=== PATIENT | female | born 1965 | race Caucasian/White ===

== ENCOUNTER 2020-11-28 05:33 | Inpatient (IN) | payer BC ==
--- NOTE | 2020-11-28 06:31 | ED ---
General Adult HPI - General Source: patient, EMS Mode of arrival: EMS Limitations: no limitations - History of Present Illness Onset/Timin -: hour(s) Location: back, abdomen Radiation: non-radiation Quality: aching, sharp Consistency: colicky Improves with: medication Worsens with: none Associated Symptoms: nausea/vomiting Treatments Prior to Arrival: other <Hugo Rubi - Last Filed: 11/28/20 06:31> <Bibiana Nina - Last Filed: 11/28/20 07:45> - General Chief complaint: Recheck/Abnormal Lab/Rx Stated complaint: Kidney stone Time Seen by Provider: 11/28/20 05:38 - History of Present Illness Initial comments: this patient is a 55-year-old woman transferred here from [facility] for concerns about possibility of infected kidney stone. (Hugo Rubi) - Related Data Allergies Allergy/AdvReac Type Severity Reaction Status Date / Time codeine Allergy Unknown Verified 11/28/20 07:30 Review of Systems ROS Other: All systems not noted in ROS Statement are negative. Constitutional: Reports: fever (subjective). Denies: chills Respiratory: Denies: cough, dyspnea Cardiovascular: Denies: chest pain, palpitations, edema, syncope Gastrointestinal: Reports: as per HPI, abdominal pain, nausea, vomiting. Denies: diarrhea, constipation, melena, hematochezia Genitourinary: Denies: dysuria, hematuria Musculoskeletal: Denies: back pain Skin: Denies: rash Neurological: Denies: headache, weakness, numbness <Hugo Rubi - Last Filed: 11/28/20 06:31> ROS Other: All systems not noted in ROS Statement are negative. <Bibiana Nina - Last Filed: 11/28/20 07:45> ROS Statement: Those systems with pertinent positive or pertinent negative responses have been documented in the HPI. Past Medical History Past Medical History: Rheumatoid Arthritis (RA), Sleep Apnea/CPAP/BIPAP History of Any Multi-Drug Resistant Organisms: None Reported Past Psychological History: No Psychological Hx Reported, Anxiety Smoking Status: Former smoker Past Alcohol Use History: Occasional Past Drug Use History: None Reported <Hugo Rubi - Last Filed: 11/28/20 06:31> General Exam Limitations: no limitations General appearance: alert, in no apparent distress Eye exam: Present: normal appearance. Absent: scleral icterus, conjunctival injection ENT exam: Present: normal oropharynx Neck exam: Present: normal inspection Respiratory exam: Present: normal lung sounds bilaterally. Absent: respiratory distress, wheezes, rales, rhonchi, stridor Cardiovascular Exam: Present: regular rate, normal rhythm, normal heart sounds. Absent: systolic murmur, diastolic murmur, rubs, gallop GI/Abdominal exam: Present: soft. Absent: distended, tenderness, guarding, rebound, rigid Extremities exam: Present: normal inspection, normal capillary refill. Absent: pedal edema, calf tenderness Back exam: Present: normal inspection, CVA tenderness (R). Absent: CVA tenderness (L) Neurological exam: Present: alert Skin exam: Present: warm, dry, intact, normal color. Absent: rash <Hugo Rubi - Last Filed: 11/28/20 06:31> Course Vital Signs 11/28/20 05:35 Temperature 98.0 F Pulse Rate 86 Respiratory 18 Rate Blood Pressure 121/98 O2 Sat by Pulse 97 Oximetry Medical Decision Making <Hugo Rubi - Last Filed: 11/28/20 06:31> <Bibiana iNna - Last Filed: 11/28/20 07:45> - Medical Decision Making patient is 55-year-old woman transferred here from [facility] for right ureteral stone with intractable pain and possible infection. This discussed with Dr. Parekh who requests patient admitted to medicine with urology consultation for the discussed with sound physician and they will accept admission. (Hugo Rubi) pt abx as verbal order from Dr Rubi (not involved in patient care) (Bibiana Nina) Disposition Is patient prescribed a controlled substance at d/c from ED?: No <Hugo Rubi - Last Filed: 11/28/20 06:31> <Bibiana Nina - Last Filed: 11/28/20 07:45> Clinical Impression: Kidney stone on right side, Urinary tract infection Disposition: ADMITTED IP TO THIS HOSP Condition: Fair
[2020-11-28] MEDS ORDERED: ONDANSETRON 4 MG/2 ML VIAL IVP PRN (06:44)
[2020-11-28] MEDS ORDERED: NALOXONE 0.4 MG/ML 1 ML VIAL IV PRN (06:44)
[2020-11-28] MEDS ORDERED: HYDROmorphone 0.5 MG/0.5 ML SYRINGE IVP PRN (06:44)
[2020-11-28] MEDS ORDERED: HYDROmorphone 1 MG/ML 1 ML SYRINGE IVP PRN (06:44)
[2020-11-28] MEDS: SODIUM CHLORIDE 0.9% 1,000 ML IV SCH ×2 (07:18→21:43)
[2020-11-28] MEDS ORDERED: cefTRIAXone IN SWFI 1,000 MG/10 ML SYRINGE IVP STA (07:44)
[2020-11-28 07:49] LABS: HCT 38.1 % (34.0-46.0); HGB 12.7 gm/dL (11.4-16.0); MCH 33.9 pg (25.0-35.0); MCHC 33.4 g/dL (31.0-37.0); MCV 101.4 fL (80.0-100.0); Macrocytosis Slight; Mean Platelet Volume 8.6; Platelet Count 141 k/uL (150-450); RBC 3.76 m/uL (3.80-5.40); RDW 13.4 % (11.5-15.5); WBC 7.5 k/uL (3.8-10.6)
[2020-11-28 07:59] LABS: Prothrombin Time 10.6 sec (9.0-12.0)
[2020-11-28 08:16] LABS: African American GFR (CKD) >90 (>60 ml/min/1.73 sqM); Anion Gap 4 mmol/L; Blood Urea Nitrogen 15 mg/dL (7-17); Calcium 7.8 mg/dL (8.4-10.2); Carbon Dioxide 26 mmol/L (22-30); Chloride 112 mmol/L (98-107); Glucose 101 mg/dL (74-99); Non-African American GFR(CKD) >90 (>60 ml/min/1.73 sqM); Potassium 4.6 mmol/L (3.5-5.1); Sodium 142 mmol/L (137-145)
[2020-11-28] MEDS ORDERED: HYDROcodone/APAP 5-325MG 1 EACH TAB PO PRN (08:32)
[2020-11-28] MEDS ORDERED: bisacodyL 5 MG TABLET.DR PO PRN (08:32)
--- NOTE | 2020-11-28 08:32 | P.HPIM ---
History of Present Illness H&P Date: 11/28/20 Chief Complaint: back pain Patient is a 55-year-old with rheumatoid arthritis on Humira and methotrexate, Obesity, and recent COVID infection who initially presented to [facility] due to sudden onset right flank pain. There she underwent an extensive evaluation. CT abdomen and pelvis without contrast demonstrated a 14 mm stone at the right UPJ with moderate right hydronephrosis and 2 smaller proximal right ureteric calculi, left nephrolithiasis without obstructing ureteral calculus was also seen. Urinalysis demonstrated 50-100 white blood cells. White blood cell count was normal. She was transferred to here for urology evaluation. Repeat CBC still with noraml WBC. She was started on pain medications, rocephin and IV fluids. Patient seen and examined at bedside. Right sided back pain start suddenly yesterday. that was wrapping around to the anterior abd and pelvis on the right, No nausea or vomiting, no problems urinating no pain with urination. Pain is dull but waxes and wanes to sharp. No diarrhea. Intermittent chest pain due to anxiety which is common for her with anxiety. No fevers. Had COVID October 28. Humaria last dose 11/24 after being off for one month due to COVID, missed methotrexate for 3 weeks as well. PCP: Moy Dave Pertinent positives and negatives as discussed in HPI, a complete review of systems was performed and all other systems are negative. General: ill appearing , no distress, appears at stated age, obese Derm: warm, dry Head: atraumatic, normocephalic, symmetric Eyes: EOMI, no lid lag, anicteric sclera, pupils equal round reactive to light ENT: Nose and ears atraumatic, + thrush, no pharyngeal erythema Neck: No thyromegaly, no cervical lymphadenopathy, trachea midline, supple Mouth: no lip lesion, mucus membranes moist Cardiovascular: S1S2 reg, no murmur, positive posterior tibial pulse bilateral, no edema, capillary refill less than 2 seconds Lungs: Decreased bs bilateral, no ronchi, no rales, no wheeze, no accessory muscle use Abdominal: soft, nontender to palpation, no guarding, no appreciable organomegaly, normal bowel sounds Ext: no gross muscle atrophy, muscle strength muscle strength 5 out of 5 in all 4 extremities, no contractures Neuro: CN II-XI grossly intact, light touch intact all 4 extremities, finger to nose within normal limits, Psych: Alert, oriented, appropriate affect Right sided UPJ stone with right sided hydronephrosis, - possible UTI but catch was dirty will repear - Pain control -IV fluids -Urology consultation -Antiemetics - Ayon -Surgical risk for ureteral stent NSQIP- below average risk COuld walk 2 city blocks without chest pain or dyspnea. Rheumatoid arthritis with immunosuppression -Hold methotrexate and Humira until repeat UA to determine if complicated UTI DAI - CPAP at night Morbid Obesity wtih BMI 45.4 - Structured outpatient weight loss Thrush - nystatin swish and swallow The patient is admitted with an anticipated greater than 2 midnight stay for evaluation ofhydronephrosis. Surrogate decision-maker: CODE STATUS: full DVT prophylaxis: SCDs Discussed with: patient, nursing Anticipated discharge date: in AM Anticipated discharge place: home A total of 35 minutes was spent on the care of this complex patient more than 50% of the time was spent in counseling and care coordination. Past Medical History Past Medical History: Rheumatoid Arthritis (RA), Sleep Apnea/CPAP/BIPAP Additional Past Medical History / Comment(s): rheumatoid arthritis. DAI. Lung and thyroid nodules History of Any Multi-Drug Resistant Organisms: None Reported Past Surgical History: Tonsillectomy Additional Past Surgical History / Comment(s): uterine ablation Past Psychological History: No Psychological Hx Reported, Anxiety Smoking Status: Former smoker (quit 4 years ago) Past Alcohol Use History: Occasional (two times monthly ) Past Drug Use History: None Reported - Past Family History Father Additional Family Medical History / Comment(s): cardiac disease Mother Additional Family Medical History / Comment(s): no cardiac disease Medications and Allergies Home Medications Medication Instructions Recorded Confirmed Type Adalimumab [Humira Pen] 40 mg SQ Q14D 11/28/20 11/28/20 History Albuterol Sulfate [Albuterol 2 puff INHALATION RT-QID PRN 11/28/20 11/28/20 History Sulfate Hfa] Alendronate Sodium [Fosamax] 70 mg PO MO 11/28/20 11/28/20 History Celecoxib [CeleBREX] 200 mg PO DAILY 11/28/20 11/28/20 History Cholecalciferol (Vitamin D3) 125 mcg PO DAILY 11/28/20 11/28/20 History [Vitamin D3 (5000 Iu)] DULoxetine HCL [Cymbalta] 60 mg PO HS 11/28/20 11/28/20 History Folic Acid 1 mg PO DAILY 11/28/20 11/28/20 History Pantoprazole [Protonix] 40 mg PO DAILY 11/28/20 11/28/20 History Vitamin B Complex 1 cap PO DAILY 11/28/20 11/28/20 History metHOTREXate sodium [Methotrexate] 25 mg PO CASTELLANO 11/28/20 11/28/20 History Allergies Allergy/AdvReac Type Severity Reaction Status Date / Time codeine Allergy Unknown Verified 11/28/20 07:30 Physical Exam Osteopathic Statement: *. No significant issues noted on an osteopathic structural exam other than those noted in the History and Physical/Consult. Vitals: Vital Signs Temp Pulse Resp BP Pulse Ox 11/28/20 05:35 98.0 F 86 18 121/98 97 Intake and Output 11/27/20 11/28/20 11/28/20 22:59 06:59 14:59 Other: Voiding Method Toilet Weight 131.542 kg Results CBC & Chem 7: 11/28/20 07:26 11/28/20 07:26 Labs: Abnormal Lab Results - Last 24 Hours (Table) 11/28/20 Range/Units 07:26 RBC 3.76 L (3.80-5.40) m/uL MCV 101.4 H (80.0-100.0) fL Plt Count 141 L (150-450) k/uL
[2020-11-28] MEDS ORDERED: ALBUTEROL HFA INHALER INHALATION PRN (08:34)
--- NOTE | 2020-11-28 09:26 | P.GSCN ---
History of Present Illness Consult date: 11/28/20 Reason for Consult: Right flank pain Requesting physician: Heather May History of present illness: The patient is a 55-year-old white female who believes she may have passed a kidney stone in the remote past. Her daughter has been treated for recurrent kidney stones. The patient experienced acute onset of right flank pain yesterday afternoon and was evaluated at [facility]. Urinalysis was suggestive of a UTI. CT scan showed evidence of right hydronephrosis due to a 14 mm right proximal ureteral calculus. The CT scan also showed a 26 mm nonobstructing left renal calculus. She was transferred to [facility] for further management. Review of Systems - Constitutional Denies chills, Denies fever - Gastrointestinal Denies nausea, Denies vomiting - Genitourinary Genitourinary: Reports flank pain, Reports kidney stones, Denies dysuria, Denies hematuria Past Medical History Past Medical History: Rheumatoid Arthritis (RA), Sleep Apnea/CPAP/BIPAP Additional Past Medical History / Comment(s): rheumatoid arthritis. DAI. Lung and thyroid nodules History of Any Multi-Drug Resistant Organisms: None Reported Past Surgical History: Tonsillectomy Additional Past Surgical History / Comment(s): uterine ablation Past Psychological History: No Psychological Hx Reported, Anxiety Smoking Status: Former smoker (quit 4 years ago) Past Alcohol Use History: Occasional (two times monthly ) Past Drug Use History: None Reported - Past Family History Father Additional Family Medical History / Comment(s): cardiac disease Mother Additional Family Medical History / Comment(s): no cardiac disease Medications and Allergies Home Medications Medication Instructions Recorded Confirmed Type Adalimumab [Humira Pen] 40 mg SQ Q14D 11/28/20 11/28/20 History Albuterol Sulfate [Albuterol 2 puff INHALATION RT-QID PRN 11/28/20 11/28/20 History Sulfate Hfa] Alendronate Sodium [Fosamax] 70 mg PO MO 11/28/20 11/28/20 History Celecoxib [CeleBREX] 200 mg PO DAILY 11/28/20 11/28/20 History Cholecalciferol (Vitamin D3) 125 mcg PO DAILY 11/28/20 11/28/20 History [Vitamin D3 (5000 Iu)] DULoxetine HCL [Cymbalta] 60 mg PO HS 11/28/20 11/28/20 History Folic Acid 1 mg PO DAILY 11/28/20 11/28/20 History Pantoprazole [Protonix] 40 mg PO DAILY 11/28/20 11/28/20 History Vitamin B Complex 1 cap PO DAILY 11/28/20 11/28/20 History metHOTREXate sodium [Methotrexate] 25 mg PO CASTELLANO 11/28/20 11/28/20 History Allergies Allergy/AdvReac Type Severity Reaction Status Date / Time codeine Allergy Unknown Verified 11/28/20 07:30 Surgical - Exam Vital Signs Temp Pulse Resp BP Pulse Ox 98.0 F 86 18 121/98 97 11/28/20 05:35 11/28/20 05:35 11/28/20 05:35 11/28/20 05:35 11/28/20 05:35 - General well developed, well nourished, no distress - Neck no masses, trachea midline - Abdomen Abdomen: soft, tender (Mild right CVA tenderness), no guarding, no rigid, no rebound - Psychiatric oriented to time, oriented to person, oriented to place, speech is normal, memory intact Results - Labs 11/28/20 07:26 11/28/20 07:26 Abnormal Lab Results - Last 24 Hours (Table) 11/28/20 11/28/20 11/28/20 Range/Units 06:50 07:26 07:26 RBC 3.76 L (3.80-5.40) m/uL MCV 101.4 H (80.0-100.0) fL Plt Count 141 L (150-450) k/uL Chloride 112 H (98-107) mmol/L Glucose 101 H (74-99) mg/dL Calcium 7.8 L (8.4-10.2) mg/dL SARS-CoV-2 (PCR) Detected A (Not Detectd) Diabetes panel 11/28/20 Range/Units 07:26 Sodium 142 (137-145) mmol/L Potassium 4.6 (3.5-5.1) mmol/L Chloride 112 H (98-107) mmol/L Carbon Dioxide 26 (22-30) mmol/L BUN 15 (7-17) mg/dL Creatinine 0.55 (0.52-1.04) mg/dL Glucose 101 H (74-99) mg/dL Calcium 7.8 L (8.4-10.2) mg/dL Calcium panel 11/28/20 Range/Units 07:26 Calcium 7.8 L (8.4-10.2) mg/dL Pituitary panel 11/28/20 Range/Units 07:26 Sodium 142 (137-145) mmol/L Potassium 4.6 (3.5-5.1) mmol/L Chloride 112 H (98-107) mmol/L Carbon Dioxide 26 (22-30) mmol/L BUN 15 (7-17) mg/dL Creatinine 0.55 (0.52-1.04) mg/dL Glucose 101 H (74-99) mg/dL Calcium 7.8 L (8.4-10.2) mg/dL Adrenal panel 11/28/20 Range/Units 07:26 Sodium 142 (137-145) mmol/L Potassium 4.6 (3.5-5.1) mmol/L Chloride 112 H (98-107) mmol/L Carbon Dioxide 26 (22-30) mmol/L BUN 15 (7-17) mg/dL Creatinine 0.55 (0.52-1.04) mg/dL Glucose 101 H (74-99) mg/dL Calcium 7.8 L (8.4-10.2) mg/dL - Imaging CT scan - abdomen: report reviewed, image reviewed Assessment and Plan (1) Calculus of kidney Current Visit: Yes Status: Acute Code(s): N20.0 - CALCULUS OF KIDNEY SNOMED Code(s): 49776274 (2) Calculus of ureter Current Visit: Yes Status: Acute Code(s): N20.1 - CALCULUS OF URETER SNOMED Code(s): 49477885 (3) Hydronephrosis with renal and ureteral calculous obstruction Current Visit: Yes Status: Acute Code(s): N13.2 - HYDRONEPHROSIS WITH RENAL AND URETERAL CALCULOUS OBSTRUCTION SNOMED Code(s): 724609856 Plan: I had a lengthy discussion with the patient regarding her kidney stones. The left renal calculus is not causing pain or obstruction, so no treatment is required at this time. Rather, attention needs to be focused on the obstructing right proximal ureteral calculi and the fact that there appears to be a possible UTI. A urine culture has been obtained, and she is receiving Rocephin. I have suggested she undergo cystoscopy with right ureteral stent insertion to relieve the obstruction. Subsequently, options include extracorporal shockwave lithotripsy (ESWL), percutaneous nephrolithotomy (PCNL), and ureteroscopy with laser lithotripsy. I have suggested she undergo the latter after the infection has resolved. Once the right-sided stones have been removed, I have suggested she undergo a left PCNL. Risks associated with stent placement include anesthesia, inability to place the stent, and ureteral injury. This has been discussed with the patient, along with the possible need for a right percutaneous nephrostomy tube. Time with Patient: Greater than 30
[2020-11-28] MEDS: PANTOPRAZOLE 40 MG TABLET PO SCH (11:34)
[2020-11-28] MEDS: NYSTATIN 100,000 UNIT/ML SUSP 500,000 UNIT/5 ML CUP PO SCH ×4 (11:34→21:43)
[2020-11-28] MEDS: FOLIC ACID 1 MG TAB PO SCH (11:34)
[2020-11-28] MEDS: DULoxetine HCL 60 MG CAPSULE.DR PO SCH (11:43)
[2020-11-28] MEDS ORDERED: fentaNYL (PF) 50 MCG/ML 2 ML AMP ONE (16:31)
[2020-11-28] MEDS ORDERED: diphenhydrAMINE 50 MG/ML 1 ML VIAL ONE (16:31)
[2020-11-28] MEDS ORDERED: KETAMINE 10 MG/ML 20 ML VIAL ONE (16:31)
[2020-11-28] MEDS ORDERED: IV FLUID CONTINUATION 1,000 ML IV ONE (16:31)
[2020-11-28] MEDS ORDERED: PROPOFOL 10 MG/ML 20 ML VIAL IV ONE (16:31)
[2020-11-28] MEDS ORDERED: MIDAZOLAM 2 MG/2 ML VIAL ONE (16:31)
[2020-11-28] MEDS ORDERED: DEXAMETHASONE SOD PHOSPHATE 10 MG/ML 1 ML VIAL ONE (16:31)
[2020-11-28] MEDS ORDERED: LIDOCAINE URO-JET JELLY 2% 5 ML KIT URETHRAL ONE (16:48)
[2020-11-28 16:59] LABS: Appearance,Urine Cloudy (Clear); Bacteria,Urine Rare /hpf; Bilirubin,Urine Negative (Negative); Blood,Urine Moderate (Negative); Color,Urine Yellow; Glucose,Urine (UA) Negative (Negative); Ketones,Urine Negative (Negative); Leukocyte Esterase,Urine Large (Negative); Mucus,Urine Rare /hpf; Nitrite,Urine Negative (Negative); PH, Urine 5.5 (5.0-8.0); Protein,Urine Trace (Negative); RBC,Urine 122 /hpf (0-5); Specific Gravity,Urine 1.014 (1.001-1.035); Squamous Epithelial Cell,Urine 4 /hpf (0-4); Urobilinogen,Urine <2.0 mg/dL (<2.0); WBC,Urine >182 /hpf (0-5)
[2020-11-28] MEDS ORDERED: IOPAMIDOL-370 50ML BTL MISCELLANE ONE ×3 (17:12)
--- NOTE | 2020-11-28 17:36 | P.OP ---
Date of Procedure: 11/28/20 Preoperative Diagnosis: Right hydronephrosis secondary to right ureteral calculus Postoperative Diagnosis: Same Procedure(s) Performed: Cystoscopy, right retrograde pyelogram, right ureteral stent insertion Anesthesia: MAC Surgeon: Sergey Bermeo Estimated Blood Loss (ml): 0 IV fluids (ml): 500 Pathology: none sent Condition: stable Disposition: PACU Indications for Procedure: The patient is a 55-year-old white female who experienced acute onset of right flank pain yesterday afternoon and was evaluated at [facility]. Urinalysis was suggestive of a UTI. CT scan showed evidence of right hydronephrosis due to a 14 mm right proximal ureteral calculus. The CT scan also showed a 26 mm nonobstructing left renal calculus. Operative Findings: Obstructing right UPJ calculus. Description of Procedure: The patient was taken to the operating room and placed in the dorsolithotomy position, with legs supported in Raul stirrups. The external genitalia was prepped and draped sterilely. The 30 lens was used to introduce the 22-[place] Stortz cystoscopic sheath through the urethra and into the bladder under direct vision. The bladder was examined in its entirety. Both ureteral orifices were of normal anatomic location and configuration, and clear urine effluxed from both. No tumors or foreign bodies were seen. An angle-tip 0.035 inch Glidewire was passed through the cystoscope. The right ureteral orifice was cannulated, and the Glidewire was slowly advanced up to the renal pelvis. A 26 cm, 6-[place] double-J ureteral stent was placed over the wire. However, I was not confident that the stent was properly positioned. Therefore, grasping forceps were used to remove the distal end of the right ureteral stent. The Glidewire was passed through the stent, which was removed, and a 6-[place] open-ended catheter was passed over the wire, into the distal ureter. After removing the Glidewire, contrast was injected which showed the ureter to be normal. The calculus was located within the right renal pelvis, presumably dislodged by the initial stent placement. The calculus appeared to be radiolucent. The Glidewire was passed through the open-ended catheter, which was removed. The stent was passed over the wire, and proper stent positioning was verified fluoroscopically and endoscopically. There was evidence of a "hydronephrotic soliz", as cloudy urine drained through the stent. The beak of the cystoscope was placed immediately adjacent to the distal end of the stent, and urine was collected. This was saved and sent for culture and sensitivity. The bladder was emptied and the cystoscope removed. The patient tolerated the procedure well was taken to the recovery room in stable condition.
[2020-11-28] MEDS ORDERED: NON FORMULARY DRUG (Alendronate Sodium [Fosamax] 70 MG Tablet) PO SCH (17:45)
--- NOTE | 2020-11-29 05:00 | FL ---
EXAMINATION TYPE: FL urography retrograde DATE OF EXAM: 11/28/2020 CLINICAL HISTORY: Kidney stone TECHNIQUE: Fluoroscopy. COMPARISON: Outside CT same day. FINDINGS: Fluoroscopic guidance was provided during right-sided cystoscopy procedure with ureter dave nt placement performed by Dr. Bermeo. A total of 1 minute 59 seconds of fluoroscopic time was utiliz ed during the procedure and 2 spot images are acquired. Images acquired show access and opacification of the right collecting system with placement of ureter stent. IMPRESSION: As Above.
[2020-11-29] MEDS: MELOXICAM 7.5 MG TAB PO SCH (08:17)
[2020-11-29] MEDS: FOLIC ACID 1 MG TAB PO SCH (08:17)
[2020-11-29] MEDS: NYSTATIN 100,000 UNIT/ML SUSP 500,000 UNIT/5 ML CUP PO SCH ×4 (08:17→20:36)
[2020-11-29] MEDS: PANTOPRAZOLE 40 MG TABLET PO SCH (08:17)
[2020-11-29] MEDS: SODIUM CHLORIDE 0.9% 1,000 ML IV SCH (08:19)
[2020-11-29 09:56] LABS: HCT 40.2 % (37.2-46.3); HGB 12.6 g/dL (12.0-15.0); MCH 32.6 pg (27.0-32.0); MCHC 31.3 g/dL (32.0-37.0); MCV 103.9 fL (80.0-97.0); Mean Platelet Volume 10.9 fL (9.5-12.2); Platelet Count 183 X 10*3/uL (140-440); RBC 3.87 X 10*6/uL (4.10-5.20); RDW 13.1 % (11.5-14.5); WBC 5.97 X 10*3/uL (4.50-10.00)
[2020-11-29] MEDS ORDERED: ACETAMINOPHEN TAB 325 MG TAB PO PRN (11:17)
[2020-11-29] MEDS: polyethylene glycoL 3350 17 GM POWD.PACK PO SCH (11:18)
[2020-11-29 11:44] LABS: African American GFR (CKD) 124.5 (60.0-200.0); Anion Gap 11.8 mmol/L (4.00-12.00); Calcium 8.1 mg/dL (8.7-10.3); Carbon Dioxide 22.2 mmol/L (21.6-31.8); Non-African American GFR(CKD) 107.4 (60.0-200.0); Potassium 4.7 mmol/L (3.5-5.5)
--- NOTE | 2020-11-29 15:08 | P.PN ---
Progress Note - Text Progress Note Date: 11/29/20 The patient denies pain. She reports mild urgency which she attributes to the stent. She is afebrile. Her WBC count is normal. The urine culture is pending. I would suggest IV antibiotics be continued until the urine culture result is complete.
--- NOTE | 2020-11-29 18:52 | P.PN ---
Subjective Progress Note Date: 11/29/20 (Delayed charting seen at 10:45) Principal diagnosis: back pain Patient is a 55-year-old with rheumatoid arthritis on Humira and methotrexate, Obesity, and recent COVID infection who initially presented to [place] due to sudden onset right flank pain. There she underwent an extensive evaluation. CT abdomen and pelvis without contrast demonstrated a 14 mm stone at the right UPJ with moderate right hydronephrosis and 2 smaller proximal right ureteric calculi, left nephrolithiasis without obstructing ureteral calculus was also seen. Urinalysis demonstrated 50-100 white blood cells. White blood cell count was normal. She was transferred to here for urology evaluation. Repeat CBC still with noraml WBC. She was started on pain medications, rocephin and IV fluids. She underwent cystoscopy with right ureteric stent insertion. She continued to do well postoperatively. She was continued on Rocephin. Patient seen and examined at bedside. She states that her pain is well- controlled, no nausea, no vomiting, no fevers, no chills. Wants to go home. General: non toxic, no distress, appears at stated age, obese Derm: warm, dry Head: atraumatic, normocephalic, symmetric Eyes: EOMI, no lid lag, anicteric sclera Mouth: no lip lesion, mucus membranes moist Cardiovascular: S1S2 reg, no murmur, positive posterior tibial pulse bilateral, Lungs: CTA bilateral, no rhonchi, no rales , no accessory muscle use Abdominal: soft, nontender to palpation, no guarding, no appreciable organomegaly Ext: no gross muscle atrophy, no edema, no contractures Neuro: CN II-XI grossly intact, no focal neuro deficits Psych: Alert, oriented, appropriate affect Right sided UPJ stone with right sided hydronephrosis, s/p R Ureteral stent, pyelonephritis - Pain control - Rocephin - IV fluids - Urology recs appreciated - Antiemetics - Hold humaria and methotraxe Rheumatoid arthritis with immunosuppression -Hold methotrexate and Humira until repeat UA to determine if complicated UTI DAI - CPAP at night Morbid Obesity wtih BMI 45.4 - Structured outpatient weight loss Thrush - nystatin swish and swallow DVT prophylaxis: SCDs Discussed with: patient, nursing Anticipated discharge date: in AM Anticipated discharge place: home A total of 35 minutes was spent on the care of this complex patient more than 50% of the time was spent in counseling and care coordination. Objective - Vital Signs Vital signs: Vital Signs Temp 98.6 F 11/29/20 17:42 Pulse 85 11/29/20 17:42 Resp 16 11/29/20 17:42 BP 154/89 11/29/20 17:42 Pulse Ox 94 L 11/29/20 17:42 Intake & Output 11/28/20 11/29/20 11/29/20 18:59 06:59 18:59 Intake Total 500 Output Total 400 1400 Balance 100 -1400 Weight 131.542 kg Intake: IV 500 Output: Urine 400 1400 Estimated Blood Loss 0 Other: Voiding Method Toilet Toilet Toilet # Voids 1 # Bowel Movements 0 - Labs CBC & Chem 7: 11/29/20 05:23 11/29/20 05:23 Labs: Abnormal Lab Results - Last 24 Hours (Table) 11/29/20 11/29/20 Range/Units 05:23 05:23 RBC 3.87 L (4.10-5.20) X 10*6/uL MCV 103.9 H (80.0-97.0) fL MCH 32.6 H (27.0-32.0) pg MCHC 31.3 L (32.0-37.0) g/dL Creatinine 0.5 L (0.6-1.5) mg/dL BUN/Creatinine Ratio 22.00 H (12.00-20.00) Ratio Glucose 142 H (70-110) mg/dL Calcium 8.1 L (8.7-10.3) mg/dL Microbiology - Last 24 Hours (Table) 11/28/20 16:15 Urine Culture - Preliminary Urine,Voided 11/28/20 17:28 Urine Culture - Preliminary Urine,Ureter
[2020-11-29] MEDS: DULoxetine HCL 60 MG CAPSULE.DR PO SCH (20:36)
[2020-11-30] MEDS: MELOXICAM 7.5 MG TAB PO SCH (08:26)
[2020-11-30] MEDS: FOLIC ACID 1 MG TAB PO SCH (08:26)
[2020-11-30] MEDS: NYSTATIN 100,000 UNIT/ML SUSP 500,000 UNIT/5 ML CUP PO SCH ×2 (08:26→11:53)
[2020-11-30] MEDS: PANTOPRAZOLE 40 MG TABLET PO SCH (08:26)
[2020-11-30] MEDS: polyethylene glycoL 3350 17 GM POWD.PACK PO SCH (08:27)
[2020-11-30 09:53] VITALS: BP 138/81; PULSE 81; RESP 16; TEMP 98.5
--- NOTE | 2020-11-30 18:34 | P.DS ---
Providers Date of admission: 11/28/20 14:31 Expected date of discharge: 11/30/20 Attending physician: Heather May MD Consults: 11/28/20 06:47 Consult Physician Routine Consulting Provider: Giuseppe Parekh Consult Reason/Comments: kidney stone Do you want consulting provider notified?: Yes Primary care physician: Physician Nonstaff Hospital Course: Discharge Diagnosis: Right sided UPJ stone with right sided hydronephrosis, s/p R Ureteral stent, pyelonephritis Rheumatoid arthritis with immunosuppression DAI Morbid Obesity wt BMI 45.4 Thrush Positive Covid testing due to a prolonged viral shedding, patient does not have Covid Hospital Course: Patient is a 55-year-old with rheumatoid arthritis on Humira and methotrexate, Obesity, and recent COVID infection who initially presented to [facility] due to sudden onset right flank pain. There she underwent an extensive evaluation. CT abdomen and pelvis without contrast demonstrated a 14 mm stone at the right UPJ with moderate right hydronephrosis and 2 smaller proximal right ureteral calculi, left nephrolithiasis without obstructing ureteral calculus was also seen. Urinalysis demonstrated 50-100 white blood cells. White blood cell count was normal. She was transferred to here for urology evaluation. Repeat CBC still with normal WBC. She was started on pain medications, rocephin and IV fluids. She underwent cystoscopy with right ureteric stent insertion. She continued to do well postoperatively. She was continued on Rocephin. Her c ulture came back negative. She was determined stable for discharge. Follow-up: Dr. De La Rosa in 2 weeks, your family physician in 1-2 days, Marisa for 12 more days, Hold Humaria and Methotrexate until sents removed. Patient seen and examined at bedside. Feeling well, wants to be discharged home, no pain, no difficulty urinating. No nausea or vomiting. Instructions discussed as above under follow-up Vital signs reviewed and stable. General: non toxic, no distress, appears at stated age, obese Derm: warm, dry Head: atraumatic, normocephalic, symmetric Eyes: EOMI, no lid lag, anicteric sclera Mouth: no lip lesion, mucus membranes moist Cardiovascular: S1S2 reg, no murmur, positive posterior tibial pulse bilateral, Lungs: Decreased breath sounds bilateral, no rhonchi, no rales , no accessory muscle use Abdominal: soft, nontender to palpation, no guarding, no appreciable organomegaly Ext: no gross muscle atrophy, no edema, no contractures Neuro: CN II-XI grossly intact, no focal neuro deficits Psych: Alert, oriented, appropriate affect A total of 35 minutes of time were spent preparing this complex discharge summary . Patient Condition at Discharge: Fair Plan - Discharge Summary Discharge Rx Participant: No New Discharge Prescriptions: New Cefpodoxime Proxetil [Vantin] 200 mg PO Q12HR #24 tab Nystatin 100,000 Unit/ml Susp [Mycostatin Oral Susp] 500,000 unit PO QID 12 Days #1 bottle Continue Cholecalciferol (Vitamin D3) [Vitamin D3 (5000 Iu)] 125 mcg PO DAILY Pantoprazole [Protonix] 40 mg PO DAILY Alendronate Sodium [Fosamax] 70 mg PO MO Folic Acid 1 mg PO DAILY DULoxetine HCL [Cymbalta] 60 mg PO HS Celecoxib [CeleBREX] 200 mg PO DAILY Albuterol Sulfate [Albuterol Sulfate Hfa] 2 puff INHALATION RT-QID PRN PRN Reason: Shortness Of Breath Vitamin B Complex 1 cap PO DAILY Discontinued Adalimumab [Humira Pen] 40 mg SQ Q14D metHOTREXate sodium [Methotrexate] 25 mg PO CASTELLANO Discharge Medication List Albuterol Sulfate [Albuterol Sulfate Hfa] 2 puff INHALATION RT-QID PRN 11/28/20 [History] Alendronate Sodium [Fosamax] 70 mg PO MO 11/28/20 [History] Celecoxib [CeleBREX] 200 mg PO DAILY 11/28/20 [History] Cholecalciferol (Vitamin D3) [Vitamin D3 (5000 Iu)] 125 mcg PO DAILY 11/28/20 [History] DULoxetine HCL [Cymbalta] 60 mg PO HS 11/28/20 [History] Folic Acid 1 mg PO DAILY 11/28/20 [History] Pantoprazole [Protonix] 40 mg PO DAILY 11/28/20 [History] Vitamin B Complex 1 cap PO DAILY 11/28/20 [History] Cefpodoxime Proxetil [Vantin] 200 mg PO Q12HR #24 tab 11/30/20 [Rx] Nystatin 100,000 Unit/ml Susp [Mycostatin Oral Susp] 500,000 unit PO QID 12 Days #1 bottle 11/30/20 [Rx] Follow up Appointment(s)/Referral(s): Sergey Bermeo MD [STAFF PHYSICIAN] - 12/21/20 8:00 am Serataernestine,Physician [Primary Care Provider] - 1-2 days Patient Instructions/Handouts: Hydronephrosis (DC), Ureteral Stones (DC), Ureteral Stent Placement (DC) Activity/Diet/Wound Care/Special Instructions: Activity: as tolerated Diet: regular diet Special Instructions: off Humaria and Methotrexate until stent removed Discharge Disposition: HOME SELF-CARE
[2020-12-04] MEDS ORDERED: metHOTREXate sodium 2.5 MG TAB PO SCH (09:00)
[2020-12-08] MEDS ORDERED: ADALIMUMAB SQ SCH (09:00)
== END 2020-11-30 13:06 | disposition home or self-care (01) | DRG 659 ==
LOC: EC 05:33 → 1SOBS 06:48 → OBSVTOIN 14:31 → 4SSUR 15:17
PROVIDERS: ADMIT Internal Medicine; ATTEND Internal Medicine
PROC: BT1D1ZZ Fluoroscopy of Right Kidney, Ureter and Bladder using Low Osmolar Contrast (ICD-10-PCS; principal; 2020-11-28 16:31)
PROC: 0T768DZ Dilation of Right Ureter with Intraluminal Device, Via Natural or Artificial Opening Endoscopic (ICD-10-PCS; principal; 2020-11-28 16:31)
DX: N13.6 Pyonephrosis (principal); U07.1 COVID-19; B37.0 Candidal stomatitis; Z68.42 Body mass index [BMI] 45.0-49.9, adult; E66.01 Morbid (severe) obesity due to excess calories; M06.9 Rheumatoid arthritis, unspecified; G47.33 Obstructive sleep apnea (adult) (pediatric); E04.2 Nontoxic multinodular goiter; F41.9 Anxiety disorder, unspecified; Z79.83 Long term (current) use of bisphosphonates; Z79.1 Long term (current) use of non-steroidal anti-inflammatories (NSAID); Z79.899 Other long term (current) drug therapy; Z87.891 Personal history of nicotine dependence; Z90.89 Acquired absence of other organs; Z87.42 Personal history of other diseases of the female genital tract; Z98.890 Other specified postprocedural states; Z88.5 Allergy status to narcotic agent; Z82.49 Family history of ischemic heart disease and other diseases of the circulatory system
CPT/HCPCS: 74420; 80048; 81001; 85027; 85610; 87086; 87636; 99285

== ENCOUNTER 2020-12-15 08:18 | Day surgery (SDC) | payer BC ==
--- NOTE | 2020-12-07 21:08 | P.GSHP ---
History of Present Illness H&P Date: 12/07/20 Chief Complaint: Renal colic The patient is a 55-year-old white female who believes she may have passed a kidney stone in the remote past. Her daughter has been treated for recurrent kidney stones. The patient experienced acute onset of right flank pain and was evaluated at [facility]. Urine cultures showed a Proteus UTI. CT scan showed evidence of right hydronephrosis due to a 14 mm right proximal ureteral calculus, as well as a 26 mm nonobstructing left renal calculus. She underwent right ureteral stent insertion on 11/28/2020 and has been treated with antibiotics. She now comes for cystoscopy, right ureteral stent removal, right ureteroscopy with Holmium laser lithotripsy. - Constitutional Constitutional: Denies chills, Denies fever - Genitourinary (Female) Genitourinary: Reports flank pain, Reports kidney stones, Denies dysuria, Denies hematuria Past Medical History Past Medical History: GERD/Reflux, Rheumatoid Arthritis (RA), Sleep Apnea/CPAP/BIPAP, Thyroid Disorder Additional Past Medical History / Comment(s): Covid infection 10/28/20-still has some SOB, RA, DAI with Cpap, thyroid nodules, pulmonary nodules, osteoporosis, bilateral carpal tunnel syndrome History of Any Multi-Drug Resistant Organisms: None Reported Past Surgical History: Tonsillectomy, Uterine Ablation Additional Past Surgical History / Comment(s): D&C Past Anesthesia/Blood Transfusion Reactions: Postoperative Nausea & Vomiting (PONV) Smoking Status: Former smoker - Past Family History Father Additional Family Medical History / Comment(s): Borderline diabetes. Father is . Mother Family Medical History: Musculoskeletal Disorder, Neurologic Disorder, Osteoarthritis (OA) Additional Family Medical History / Comment(s): Mother is . CREST (aconym for calcinosis, raynaud phenomenon, esophageal dysmotility, scherodactyly and telangiectasia syndrome), parkinson's disease Medications and Allergies Home Medications Medication Instructions Recorded Confirmed Type Albuterol Sulfate [Albuterol 2 puff INHALATION RT-QID PRN 11/28/20 11/28/20 History Sulfate Hfa] Alendronate Sodium [Fosamax] 70 mg PO MO 11/28/20 11/28/20 History Celecoxib [CeleBREX] 200 mg PO DAILY 11/28/20 11/28/20 History Cholecalciferol (Vitamin D3) 125 mcg PO DAILY 11/28/20 11/28/20 History [Vitamin D3 (5000 Iu)] DULoxetine HCL [Cymbalta] 60 mg PO HS 11/28/20 11/28/20 History Folic Acid 1 mg PO DAILY 11/28/20 11/28/20 History Pantoprazole [Protonix] 40 mg PO DAILY 11/28/20 11/28/20 History Vitamin B Complex 1 cap PO DAILY 11/28/20 11/28/20 History Cefpodoxime Proxetil [Vantin] 200 mg PO Q12HR #24 tab 11/30/20 Rx Nystatin 100,000 Unit/ml Susp 500,000 unit PO QID 12 Days #1 11/30/20 Rx [Mycostatin Oral Susp] bottle Allergies Allergy/AdvReac Type Severity Reaction Status Date / Time codeine Allergy Unknown Verified 11/28/20 07:30 Surgical - Exam - General well developed, well nourished, no distress - Respiratory normal respiratory effort - Abdomen Abdomen: soft, tender (Mild right CVA tenderness), no guarding, no rigid, no rebound - Psychiatric oriented to time, oriented to person, oriented to place, speech is normal, memory intact Assessment and Plan (1) Calculus of kidney Status: Acute Code(s): N20.0 - CALCULUS OF KIDNEY SNOMED Code(s): 97085072 Plan: At the time of stent insertion, the right proximal ureteral calculus was pushed into the right renal pelvis. She now comes for cystoscopy, right ureteral stent removal, right ureteroscopy with Holmium laser lithotripsy and possible stone basketing. Given the stone burden, it may not be possible to complete the procedure, in which case the ureteral stent will be replaced and a secondary procedure will be scheduled. The patient is aware of potential risks, which include anesthesia, bleeding, infection, and ureteral injury.
[2020-12-12 14:51] VITALS: BMI 46.2
[~2020-12-15 08:18] MED LIST: DEXAMETHASONE SOD PHOSPHATE 4 MG/ML 1 ML VIAL IV ONE; HYDROmorphone 0.5 MG/0.5 ML SYRINGE IVP PRN; LACTATED RINGERS 1,000 ML IV SCH; LIDOCAINE 1% (10MG/ML) FOR IV START INTRADERMA PRN; MIDAZOLAM 2 MG/2 ML VIAL IV PRN; ONDANSETRON 4 MG/2 ML VIAL IVP ONE
--- NOTE | 2020-12-15 08:42 | XR ---
EXAMINATION TYPE: XR KUB DATE OF EXAM: 12/15/2020 HISTORY: Pain Comparison: Outside CT 11/28/2020 Single KUB is submitted for interpretation. Findings: Right renal calculi: None Visualized. Right ureteral calculi: Double pigtail right-sided ureteral stent is in place. There is vague increas ed density along the proximal component of the stent at the UPJ which may reflect a calculus in this region. Left renal calculi: Large calculus upper pole left kidney is not clearly visualized on today's study . Left ureteral calculi: None Visualized. Pelvic calcifications: None Visualized. Bowel gas pattern is unremarkable. No free air. No mass effects. IMPRESSION: 1. As above
[2020-12-15 09:19] VITALS: RESP 16
[2020-12-15] MEDS ORDERED: SUCCINYLCHOLINE CHLORIDE 100 MG/5 ML SYR IV ONE (10:05)
[2020-12-15] MEDS ORDERED: LIDOCAINE 1% INJ 10MG/ML (20 ML MDV) ONE (10:05)
[2020-12-15] MEDS ORDERED: MIDAZOLAM 2 MG/2 ML VIAL ONE (10:05)
[2020-12-15] MEDS ORDERED: fentaNYL (PF) 50 MCG/ML 2 ML AMP ONE (10:05)
[2020-12-15] MEDS ORDERED: GLYCOPYRROLATE 0.2 MG/ML 2 ML VIAL ONE (10:05)
[2020-12-15] MEDS ORDERED: ROCURONIUM 10 MG/ML (5 ML VIAL) IV ONE (10:05)
[2020-12-15] MEDS ORDERED: PROPOFOL 10 MG/ML 20 ML VIAL IV ONE (10:05)
[2020-12-15] MEDS ORDERED: NEOSTIGMINE 1 MG/ML 10 ML VIAL ONE (10:05)
[2020-12-15] MEDS ORDERED: LACTATED RINGERS 1,000 ML IV ONE (10:49)
--- NOTE | 2020-12-15 11:04 | P.OP ---
Date of Procedure: 12/15/20 Preoperative Diagnosis: Right ureteral calculus Postoperative Diagnosis: Same Procedure(s) Performed: Cystoscopy, right ureteral stent removal, right ureteroscopy with Holmium laser lithotripsy and stone basketing Anesthesia: PATRICK Surgeon: Sergey Bermeo Estimated Blood Loss (ml): 0 IV fluids (ml): 800 Pathology: other (Calculus fragments, sent for chemical analysis) Condition: stable Disposition: PACU Indications for Procedure: The patient is a 55-year-old white female who believes she may have passed a kidney stone in the remote past. Her daughter has been treated for recurrent kidney stones. The patient experienced acute onset of right flank pain and was evaluated at [facility]. Urine cultures showed a Proteus UTI. CT scan showed evidence of right hydronephrosis due to a 14 mm right proximal ureteral calculus, as well as a 26 mm nonobstructing left renal calculus. She underwent right ureteral stent insertion on 11/28/2020 and has been treated with antibiotics. She now comes for cystoscopy, right ureteral stent removal, right ureteroscopy with Holmium laser lithotripsy. Preoperative urine cultures showed an Enterococcus faecalis VRE UTI, so she is receiving daptomycin every 24 hours perioperatively. Operative Findings: Complete fragmentation and removal of right proximal ureteral calculus. Description of Procedure: The patient was taken to the operating room and placed in the dorsolithotomy position, with legs supported in Raul stirrups. The external genitalia was prepped and draped sterilely. The 30 lens was used to introduce the 21-Egyptian Ordonez cystoscopic sheath through the urethra and into the bladder under direct vision. The bladder was examined in its entirety. No abnormalities were seen. Grasping forceps were used to grasp the distal end of the right ureteral stent, which was removed along with the cystoscope. The Ordonez semirigid ureteroscope was advanced into the bladder, and the right ureteral orifice was cannulated. The ureteroscope was slowly advanced under direct vision, up to the calculus, which was long and narrow. The 272 micron Holmium laser probe was passed through the ureteroscope, and lithotripsy was pe rformed. The calculus was soft and fragmented readily, consistent with a struvite calculus. After fragmenting the calculus, a 1.9-Egyptian nitinol basket was used to remove some of the calculus fragments. However, the fragments were less than 1 mm in size so basketing was somewhat futile. Virtually all calculus fragments passed distally into the bladder. The ureter was inspected. There was no evidence of ureteral trauma. The ureteroscope was removed, and the cystoscope was passed into the bladder. The cystoscope was used to remove calculus fragments from the bladder. These were saved and sent for chemical analysis. The bladder was emptied and the cystoscope removed. The patient tolerated the procedure well and was taken to the recovery room in stable condition. CATHIE GUZMAN Report: Procedure Acuity: Elective Stone Size and Location: 14 mm, right proximal ureter Ureteral Dilation: No Ureteral Access Sheath Used: No Stone Sent for Analysis: Yes All Stones/Fragments Were Removed with a Basket: Yes Complications: No Preoperative Antibiotics Given: Yes Stent Placed: No Discharge Medications: None
[2020-12-15 11:09] VITALS: TEMP 97.6
[2020-12-15 12:39] VITALS: BP 154/85; PULSE 85
== END 2020-12-15 12:43 | disposition home or self-care (01) ==
LOC: OR 08:18
PROVIDERS: ATTEND Urology
DX: N20.0 Calculus of kidney (principal); K21.9 Gastro-esophageal reflux disease without esophagitis; M06.9 Rheumatoid arthritis, unspecified; G47.33 Obstructive sleep apnea (adult) (pediatric); E04.2 Nontoxic multinodular goiter; M81.0 Age-related osteoporosis without current pathological fracture; G56.03 Carpal tunnel syndrome, bilateral upper limbs; Z86.16 Personal history of COVID-19; Z87.891 Personal history of nicotine dependence; Z79.899 Other long term (current) drug therapy; Z88.5 Allergy status to narcotic agent; E66.01 Morbid (severe) obesity due to excess calories
CPT/HCPCS: 82365; 74018; 50590; C1769; J2250; J1100; J2710; J2405; J2001; J3010; J0878; J0330; J2704

== ENCOUNTER → 2021-01-16 | Outpatient (CLI) | payer BC ==
[2021-01-16 14:03] LABS: Basophils # (A) 0.1 k/uL (0-0.2); Basophils % (A) 1 %; Eosinophils # (A) 0.1 k/uL (0-0.7); Eosinophils % (A) 2 %; HCT 44.7 % (34.0-46.0); HGB 14.6 gm/dL (11.4-16.0); Lymphocytes # (A) 1.1 k/uL (1.0-4.8); Lymphocytes % (A) 15 %; MCH 32.6 pg (25.0-35.0); MCHC 32.7 g/dL (31.0-37.0); MCV 99.6 fL (80.0-100.0); Mean Platelet Volume 7.5; Monocytes # (A) 0.9 k/uL (0-1.0); Monocytes % (A) 11 %; Neutrophils # (A) 5.4 k/uL (1.3-7.7); Neutrophils % (A) 68 %; Platelet Count 264 k/uL (150-450); RBC 4.48 m/uL (3.80-5.40); RDW 13.6 % (11.5-15.5); WBC 7.8 k/uL (3.8-10.6)
[2021-01-16 14:22] LABS: ALT 18 U/L (4-34); AST 30 U/L (14-36); African American GFR (CKD) >90 (>60 ml/min/1.73 sqM); Albumin 3.8 g/dL (3.5-5.0); Alkaline Phosphatase 78 U/L (38-126); Anion Gap 7 mmol/L; Blood Urea Nitrogen 17 mg/dL (7-17); Calcium 8.8 mg/dL (8.4-10.2); Carbon Dioxide 30 mmol/L (22-30); Chloride 106 mmol/L (98-107); Glucose 106 mg/dL (74-99); Non-African American GFR(CKD) 80 (>60 ml/min/1.73 sqM); Potassium 4.1 mmol/L (3.5-5.1); Sodium 143 mmol/L (137-145); Total Bilirubin 0.8 mg/dL (0.2-1.3); Total Protein 6.9 g/dL (6.3-8.2)
[2021-01-16 14:29] LABS: Appearance,Urine Turbid (Clear); Bacteria,Urine Rare /hpf; Bilirubin,Urine Negative (Negative); Blood,Urine Small (Negative); Color,Urine Yellow; Glucose,Urine (UA) Negative (Negative); Ketones,Urine Negative (Negative); Leukocyte Esterase,Urine Large (Negative); Nitrite,Urine Negative (Negative); PH, Urine 5.5 (5.0-8.0); Protein,Urine 1+ (Negative); RBC,Urine 9 /hpf (0-5); Squamous Epithelial Cell,Urine 15 /hpf (0-4); Urobilinogen,Urine <2.0 mg/dL (<2.0); WBC,Urine >182 /hpf (0-5)
== END | disposition home or self-care (01) ==
LOC: LABPAT 13:28
PROVIDERS: ATTEND Urology
DX: Z01.812 Encounter for preprocedural laboratory examination (principal); N20.0 Calculus of kidney
CPT/HCPCS: 36415; 80053; 81001; 85025; 87086

== ENCOUNTER 2021-01-25 07:42 | Observation (INO) | payer BC ==
[2021-01-19 11:40] VITALS: BMI 47.0
--- NOTE | 2021-01-24 20:10 | P.GSHP ---
History of Present Illness H&P Date: 01/24/21 55 yo female with a 2.5 cm left upper pole infected kidney stone who comes for pcnl. The risks and complications including infection, bleeding , kidney injury, adjacent organ injury, failure to remove the stone among others have been explained understood and accepted, - Constitutional Constitutional: Denies chills, Denies fever - EENT Eyes: denies blurred vision, denies pain Ears, nose, mouth and throat: Denies headache, Denies sore throat - Cardiovascular Cardiovascular: Denies chest pain, Denies shortness of breath - Respiratory Respiratory: Denies cough, Denies 7 - Gastrointestinal Gastrointestinal: Denies abdominal pain, Denies diarrhea, Denies nausea, Denies vomiting - Genitourinary (Female) Genitourinary: Denies dysuria, Denies hematuria - Genitourinary (Male) Genitourinary: Denies dysuria, Denies hematuria - Musculoskeletal Musculoskeletal: Denies myalgias - Integumentary Integumentary: Denies pruritus, Denies rash - Neurological Neurological: Denies numbness, Denies weakness - Psychiatric Psychiatric: Denies anxiety, Denies depression - Endocrine Endocrine: Denies fatigue, Denies weight change Past Medical History Past Medical History: GERD/Reflux, Rheumatoid Arthritis (RA), Sleep Apnea/CPAP/BIPAP, Thyroid Disorder Additional Past Medical History / Comment(s): Covid infection 10/28/20-still has some SOB, DAI with Cpap, thyroid nodules, pulmonary nodules, osteoporosis, bilateral carpal tunnel syndrome, kidney stones, currently on antibiotics for UTI History of Any Multi-Drug Resistant Organisms: VRE Date of last positivie culture/infection: 12/07/20 MDRO Source:: VRE URINE Past Surgical History: Tonsillectomy, Uterine Ablation Additional Past Surgical History / Comment(s): D&C, cystoscopy and lithotripsy 12/15/20 Past Anesthesia/Blood Transfusion Reactions: Motion Sickness, Postoperative Nausea & Vomiting (PONV) Smoking Status: Former smoker - Past Family History Father Additional Family Medical History / Comment(s): Borderline diabetes. Father is . Mother Family Medical History: No Reported History Additional Family Medical History / Comment(s): . Medications and Allergies Home Medications Medication Instructions Recorded Confirmed Type Alendronate Sodium [Fosamax] 70 mg PO MO 11/28/20 01/19/21 History Celecoxib [CeleBREX] 200 mg PO DAILY 11/28/20 01/19/21 History DULoxetine HCL [Cymbalta] 60 mg PO HS 11/28/20 01/19/21 History Folic Acid 1 mg PO DAILY 11/28/20 01/19/21 History Pantoprazole [Protonix] 40 mg PO 1400 11/28/20 01/19/21 History Vitamin B Complex 1 cap PO DAILY 11/28/20 01/19/21 History Adalimumab [Humira Pen] 40 mg SQ Q14D 12/12/20 01/19/21 History Cholecalciferol [Vitamin D3 (25 50 mcg PO DAILY 12/12/20 01/19/21 History Mcg = 1000 Iu)] metHOTREXate sodium [Methotrexate] 20 mg PO CASTELLANO 12/12/20 01/19/21 History Sulfamethox-Tmp 800-160Mg [Bactrim 1 tab PO Q12HR 01/19/21 01/19/21 History DS 800-160 mg] Allergies Allergy/AdvReac Type Severity Reaction Status Date / Time codeine Allergy shaky and Verified 12/15/20 08:52 lightheaded hydromorphone [From Dilaudid] Allergy warm,flushed Verified 12/15/20 08:52 feeling, nausea, sweating, Surgical - Exam - General well developed, well nourished, no distress - Eyes PERRL - ENT no hearing loss - Neck no masses, trachea midline - Respiratory normal expansion, normal respiratory effort - Cardiovascular Rhythm: regular - Abdomen Abdomen: soft, non tender - Integumentary no rash, no growths - Neurologic normal coordination, normal sensation - Musculoskeletal normal gait, normal posture - Psychiatric oriented to time, oriented to person, oriented to place, speech is normal, memory intact Results - Imaging CT scan - abdomen: report reviewed, image reviewed CT scan - pelvis: report reviewed, image reviewed Assessment and Plan Assessment: Impression: Left renal stone, large. Plan: Left pcnl
[~2021-01-25 07:42] MED LIST changes: +AMPICILLIN 1,000 MG in SODIUM CHLORIDE 0.9% 50 ML IVPB PRN; +GENTAMICIN 140 MG in SODIUM CHLORIDE 0.9% 100 ML IVPB PRN; -HYDROmorphone 0.5 MG/0.5 ML SYRINGE IVP PRN
--- NOTE | 2021-01-25 08:08 | XR ---
EXAMINATION TYPE: XR KUB DATE OF EXAM: 01/25/2021 COMPARISON: 12/15/2020 INDICATION: Kidney stones TECHNIQUE: Single view abdomen frontal projection FINDINGS: There is a normal colonic bowel gas pattern. Psoas margins are normal. No organomegaly is present. There is a 0.8 cm calcification overlying the inferior pole right kidney. Some calcifications may be present at the superior pole left kidney, present previously. Phleboliths are within the pelvis. IMPRESSION: 1. 0.8 cm calcification inferior pole right kidney
[2021-01-25] MEDS ORDERED: ROCURONIUM 10 MG/ML (5 ML VIAL) IV ONE (09:48)
[2021-01-25] MEDS ORDERED: SUCCINYLCHOLINE CHLORIDE 100 MG/5 ML SYR IV ONE (09:48)
[2021-01-25] MEDS ORDERED: LIDOCAINE 1% INJ 10MG/ML (20 ML MDV) ONE (09:48)
[2021-01-25] MEDS ORDERED: ESMOLOL 100 MG/10 ML VIAL ONE (09:48)
[2021-01-25] MEDS ORDERED: NEOSTIGMINE 1 MG/ML 10 ML VIAL ONE ×2 (09:48)
[2021-01-25] MEDS ORDERED: GLYCOPYRROLATE 0.2 MG/ML 2 ML VIAL ONE (09:48)
[2021-01-25] MEDS ORDERED: fentaNYL (PF) 50 MCG/ML 2 ML AMP ONE (09:48)
[2021-01-25] MEDS ORDERED: MIDAZOLAM 2 MG/2 ML VIAL ONE (09:48)
[2021-01-25] MEDS ORDERED: PROPOFOL 10 MG/ML 20 ML VIAL IV ONE (09:48)
[2021-01-25] MEDS ORDERED: IOPAMIDOL-370 50ML BTL MISCELLANE ONE (09:53)
[2021-01-25] MEDS ORDERED: ONDANSETRON 4 MG/2 ML VIAL IVP PRN (11:32)
[2021-01-25] MEDS ORDERED: MAG HYDROX/AL HYDROX/SIMETH 30 ML CUP PO PRN (11:32)
[2021-01-25] MEDS ORDERED: NALOXONE 0.4 MG/ML 1 ML VIAL IV PRN (11:33)
[2021-01-25] MEDS ORDERED: HYDROmorphone PCA 10 MG/50 ML BAG IV PRN (11:33)
--- NOTE | 2021-01-25 11:40 | P.OP ---
Date of Procedure: 01/25/21 Preoperative Diagnosis: Infected left renal stone , large Postoperative Diagnosis: Same, calyceal diverticulum Procedure(s) Performed: Cystoscopy, placement of ureteral catheter, percutaneous nephrostomy (Dr. cabrera), percutaneous nephrostolithotomy with laser lithotripsy, percutaneous infundibulotomy, placement of 10-Malian J nephrostomy Anesthesia: PATRICK Surgeon: Jay Cam Estimated Blood Loss (ml): 50 Pathology: other (Stone) Condition: stable Disposition: PACU Indications for Procedure: The patient is 55. She has had recurring urinary infections. She came to our office where she was identified to have a 25 x 12 mm left upper pole stone possibly in a calyceal diverticulum. She comes for percutaneous nephrostolithotomy to remove the stone and hopefully liberate her of infection Description of Procedure: The patient is brought to the operating suite. She is given a general endotracheal anesthesia on the transport gurney. She's placed in a frog position with a sterile prep and drape. Cystoscopy Foroblique lens and 21- Malian sheath identifies the left ureteral orifice which was intubated with a 5- Malian occluding balloon catheter passed into the renal pelvis A 16-Malian Ayon catheters placed and secured to the ureteral catheter The patient placed in a prone position on the operating table with care to airways and extremities. Dr. Cabrera of radiology performed percutaneous access to the left lower pole calyx. I then dilate the tract to 30-Malian and introduced the rigid sheath into the collecting system. I passed into the renal pelvis and remove any clot. I then pass a flexible nephroscope up into the upper pole calyx and see the tip of the stone and a very narrow infundibulum. 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 In 270 laser probe an infundibulotomy was created such that I can pass the flexible nephroscope up into the upper pole calyx. Then using the same laser fiber I break the stone into tiny fragments. It is obviously a stone of infection as it is whitish and easily fragments . The stone is fragmented and flushed out of the upper pole calyx. After removing the stone I inspect the calyx which is dilated and I see no remaining stone. A pullback into the infundibulum and there is no bleeding. I then introduced the rigid nephroscope and flushed all the fragments out of the collecting system. I looked down the ureter make sure that there are no stones. I then pass the flexible scope throughout the system to make sure there is no remaining stone. At the end of the procedure there is no remaining stone this I passed a 10 J nephrostomy tube over the working wire that coils in the renal pelvis. The wires removed. Returned recovery in good condition. She tolerated procedure well be placed in the hospital postoperatively. Blood loss is approximately 50 mL.
--- NOTE | 2021-01-25 11:41 | FL ---
EXAMINATION TYPE: FL Perc Nephrostomy New Access DATE OF EXAM: 01/25/2021 COMPARISON: NONE HISTORY: Left renal calculus Procedure had been discussed with the patient by Dr. Cam, risks, benefits, alternatives, were dis cussed and any questions were answered. Informed consent was obtained. The patient was in a semipro ne position prepped and draped on the OR table in the usual sterile fashion. Utilizing a 15 cm lengt h Chiba needle a single pass was made into a lower pole posterior calyx under fluoroscopic guidance. An 0.018 guidewire is passed through the needle and there was placement of a 6-Frisian catheter sheat h system. There was conversion to a 0.035 system was performed with passage of a guidewire into the ureter utilizing a directional catheter. A second safety wire was placed. Remaining portion of pro cedure performed by . Approximately 2 minutes and 59 seconds of fluoroscopy was provided. IMPRESSION: 1. Successful intraoperative left nephrostomy prior to nephrolithotomy.
[2021-01-25] MEDS ORDERED: HYDROmorphone 0.5 MG/0.5 ML SYRINGE IVP ONE ×3 (12:15→13:10)
[2021-01-25] MEDS ORDERED: LACTATED RINGERS 1,000 ML IV ONE ×3 (12:23)
[2021-01-25] MEDS ORDERED: HYDROmorphone 0.5 MG/0.5 ML SYRINGE IVP STA (14:54)
[2021-01-25] MEDS: PANTOPRAZOLE 40 MG TABLET PO SCH (17:50)
[2021-01-25] MEDS: DEXTROSE 5%-0.45% NACL 1,000 ML IV SCH (17:51)
[2021-01-25] MEDS: SULFAMETHOX-TMP 800-160MG 1 EACH TAB PO SCH (20:49)
[2021-01-25] MEDS ORDERED: DULoxetine HCL 60 MG CAPSULE.DR PO SCH (21:00)
[2021-01-26] MEDS: DEXTROSE 5%-0.45% NACL 1,000 ML IV SCH (01:33)
[2021-01-26] MEDS: ACETAMINOPHEN TAB 325 MG TAB PO PRN ×2 (02:27→11:46)
[2021-01-26] MEDS ORDERED: ETODOLAC 400 MG TAB PO PRN (06:50)
--- NOTE | 2021-01-26 06:55 | P.PN ---
Subjective Progress Note Date: 01/26/21 The patient underwent a percutaneous nephrostolithotomy yesterday. She had some shortness of breath and tachycardia last night which is probably due to relation of an infected stone. She is better this morning. She was on antibiotics perioperatively. Urine is clear. She feels better this morning. I will slowly wean her oxygen. I'll discontinue her Ayon and IV fluids. If she does well she can be discharged home later today. She is on Bactrim which is culture specific. If there is any question we'll keep her until tomorrow. This is been discussed with the patient. Objective - Vital Signs Vital signs: Vital Signs Temp 98.8 F 01/26/21 02:28 Pulse 110 H 01/26/21 06:03 Resp 24 01/26/21 04:55 BP 120/69 01/26/21 02:28 Pulse Ox 92 L 01/26/21 06:03 Intake & Output 01/25/21 01/25/21 01/26/21 06:59 18:59 06:59 Intake Total 1503.5 500 Output Total 2135 1800 Balance -631.5 -1300 Weight 136.6 kg 136.6 kg Intake: IV 1503.5 Oral 500 Output: Drainage 485 575 Left Back 485 575 Urine 1600 1225 Uretheral (Ayon) 1225 Estimated Blood Loss 50 Other: Voiding Method Indwelling Catheter
[2021-01-26] MEDS ORDERED: FOLIC ACID 1 MG TAB PO SCH (09:00)
[2021-01-26] MEDS: SULFAMETHOX-TMP 800-160MG 1 EACH TAB PO SCH (09:23)
[2021-01-26 11:53] VITALS: RESP 20
[2021-01-26 14:08] VITALS: BP 135/71; PULSE 99; TEMP 97.9
[2021-01-26] MEDS: PANTOPRAZOLE 40 MG TABLET PO SCH (14:23)
== END 2021-01-26 15:10 | disposition home or self-care (01) ==
LOC: OR 07:42 → 6PED 11:17 → OR 17:10 → 6PED 17:54
PROVIDERS: ADMIT Urology; ATTEND Urology
DX: N20.0 Calculus of kidney (principal); N10 Acute pyelonephritis; M06.9 Rheumatoid arthritis, unspecified; E04.2 Nontoxic multinodular goiter; G47.33 Obstructive sleep apnea (adult) (pediatric); K21.9 Gastro-esophageal reflux disease without esophagitis; M81.0 Age-related osteoporosis without current pathological fracture; Z79.1 Long term (current) use of non-steroidal anti-inflammatories (NSAID); Z79.83 Long term (current) use of bisphosphonates; Z79.899 Other long term (current) drug therapy; Z88.5 Allergy status to narcotic agent; Z86.16 Personal history of COVID-19; Z87.442 Personal history of urinary calculi; Z87.440 Personal history of urinary (tract) infections; Z16.21 Resistance to vancomycin; Z87.891 Personal history of nicotine dependence; Z98.890 Other specified postprocedural states; Z83.3 Family history of diabetes mellitus
CPT/HCPCS: 50081; 86900; 86901; 83605; 86850; 87040; 82365; 87635; 50432; 74018; G0378 ×2; C2628; C1769 ×2; C1894; C1729; J2250; J1100; J2710; J2405; J2001; J3010; J1580; J0290; J0330; J2704; J1170 ×2; Q9967

== ENCOUNTER 2021-02-18 13:41 | Emergency (ER) | payer BC ==
[2021-02-18 14:08] VITALS: RESP 20
[2021-02-18] MEDS ORDERED: SODIUM CHLORIDE 0.9% 1,000 ML IV STA (14:22)
[2021-02-18 15:19] LABS: Albumin 3.3 g/dL (3.5-5.0); Calcium 8.6 mg/dL (8.4-10.2); Potassium 3.9 mmol/L (3.5-5.1); Total Bilirubin 0.5 mg/dL (0.2-1.3); Total Protein 6.7 g/dL (6.3-8.2)
[2021-02-18 15:20] LABS: Appearance,Urine Clear (Clear); Bilirubin,Urine Negative (Negative); Blood,Urine Negative (Negative); Color,Urine Yellow; Glucose,Urine (UA) Negative (Negative); Ketones,Urine Negative (Negative); Leukocyte Esterase,Urine Small (Negative); Mucus,Urine Rare /hpf; Nitrite,Urine Negative (Negative); PH, Urine 5.5 (5.0-8.0); Protein,Urine Trace (Negative); RBC,Urine 4 /hpf (0-5); Specific Gravity,Urine 1.016 (1.001-1.035); Squamous Epithelial Cell,Urine 4 /hpf (0-4); Urobilinogen,Urine <2.0 mg/dL (<2.0); WBC,Urine 10 /hpf (0-5)
[2021-02-18 15:24] LABS: Basophils # (A) 0.1 k/uL (0-0.2); Basophils % (A) 1 %; Eosinophils # (A) 0.1 k/uL (0-0.7); Eosinophils % (A) 1 %; HCT 36.7 % (34.0-46.0); HGB 12.1 gm/dL (11.4-16.0); Lymphocytes # (A) 2.2 k/uL (1.0-4.8); Lymphocytes % (A) 26 %; MCH 33.1 pg (25.0-35.0); MCV 100.3 fL (80.0-100.0); Mean Platelet Volume 7.1; Monocytes # (A) 0.7 k/uL (0-1.0); Monocytes % (A) 8 %; Neutrophils # (A) 4.9 k/uL (1.3-7.7); Neutrophils % (A) 59 %; Platelet Count 265 k/uL (150-450); RBC 3.66 m/uL (3.80-5.40); RDW 13.7 % (11.5-15.5); WBC 8.3 k/uL (3.8-10.6)
--- NOTE | 2021-02-18 15:52 | ED ---
General Adult HPI - General Chief complaint: Back Pain/Injury Stated complaint: Kidney stone Time Seen by Provider: 02/18/21 14:08 Source: patient, RN notes reviewed Mode of arrival: EMS Limitations: no limitations - History of Present Illness Initial comments: Patient is a 55 year old female that presented to the ER as a transfer from [place] with a 14mm right side kidney stone. Patient stated she does have a history of kidney stones and recently had a stent placed by Dr. Cam on the left side. She stated that her pain is a 2 out of 10 and feels comfortable enough to go home. She denied any other complaints or issues at this time. She is a well appearing well hydrated 55 year old female. She denied any chest pain, sob, headache, nausea, vomitting, diarrhea, constipation, fever fatigue, chills. - Related Data Home Medications Medication Instructions Recorded Confirmed Alendronate Sodium [Fosamax] 70 mg PO MO 11/28/20 01/25/21 Celecoxib [CeleBREX] 200 mg PO DAILY 11/28/20 01/25/21 DULoxetine HCL [Cymbalta] 60 mg PO HS 11/28/20 01/25/21 Folic Acid 1 mg PO DAILY 11/28/20 01/25/21 Pantoprazole [Protonix] 40 mg PO 1400 11/28/20 01/25/21 Vitamin B Complex 1 cap PO DAILY 11/28/20 01/25/21 Adalimumab [Humira Pen] 40 mg SQ Q14D 12/12/20 01/25/21 Cholecalciferol [Vitamin D3 (25 50 mcg PO DAILY 12/12/20 01/25/21 Mcg = 1000 Iu)] metHOTREXate sodium [Methotrexate] 20 mg PO CASTELLANO 12/12/20 01/25/21 Sulfamethox-Tmp 800-160Mg [Bactrim 1 tab PO Q12HR 01/19/21 01/25/21 DS 800-160 mg] Previous Rx's Medication Instructions Recorded Ketorolac [Toradol] 10 mg PO Q6HR PRN #14 tab 01/26/21 Allergies Allergy/AdvReac Type Severity Reaction Status Date / Time codeine Allergy shaista and Verified 02/18/21 14:03 lightheaded hydromorphone [From Dilaudid] Allergy warm,flushed Verified 02/18/21 14:03 feeling, nausea, sweating, Review of Systems ROS Statement: Those systems with pertinent positive or pertinent negative responses have been documented in the HPI. ROS Other: All systems not noted in ROS Statement are negative. Past Medical History Past Medical History: GERD/Reflux, Rheumatoid Arthritis (RA), Sleep Apnea/CPAP/BIPAP, Thyroid Disorder Additional Past Medical History / Comment(s): Covid infection 10/28/20-still has some SOB, DAI with Cpap, thyroid nodules, pulmonary nodules, osteoporosis, bilateral carpal tunnel syndrome, kidney stones, History of Any Multi-Drug Resistant Organisms: VRE Date of last positivie culture/infection: 12/07/20 MDRO Source:: VRE URINE Past Surgical History: Tonsillectomy, Uterine Ablation Additional Past Surgical History / Comment(s): D&C, cystoscopy and lithotripsy Past Anesthesia/Blood Transfusion Reactions: Motion Sickness, Postoperative Nausea & Vomiting (PONV) Past Psychological History: Anxiety Smoking Status: Former smoker Past Alcohol Use History: Occasional Past Drug Use History: None Reported - Past Family History Mother Family Medical History: No Reported History Additional Family Medical History / Comment(s): . General Exam Limitations: no limitations General appearance: alert, in no apparent distress Head exam: Present: atraumatic, normocephalic, normal inspection Eye exam: Present: normal appearance, PERRL, EOMI. Absent: scleral icterus, conjunctival injection, periorbital swelling Neck exam: Present: normal inspection Respiratory exam: Present: normal lung sounds bilaterally. Absent: respiratory distress, wheezes, rales, rhonchi, stridor Cardiovascular Exam: Present: regular rate, normal rhythm, normal heart sounds. Absent: systolic murmur, diastolic murmur, rubs, gallop, clicks GI/Abdominal exam: Present: soft, normal bowel sounds. Absent: distended, tenderness, guarding, rebound, rigid Extremities exam: Present: normal inspection, full ROM, normal capillary refill. Absent: tenderness, pedal edema, joint swelling, calf tenderness Neurological exam: Present: alert, oriented X3 Psychiatric exam: Present: normal affect, normal mood Skin exam: Present: warm, dry, intact, normal color. Absent: rash Course Vital Signs 02/18/21 14:03 Temperature 97.7 F Pulse Rate 85 Respiratory 20 Rate Blood Pressure 106/70 O2 Sat by Pulse 97 Oximetry Medical Decision Making - Medical Decision Making 55 year old female with 14mm right UPJ stone. Ct report was sent with pt: stating the large stone previously in the left kidney essentially gone with exception of a 2mm nonobstructing stone and questionable2 stones of a 1mm size in left ureter. There is stranding perinephric and at the proximal left ureter as well. Close follow up recommended. lithotripsy is suspected cause. again, 14mm stone in the right URJ. basic labs and 1L normal saline ordered labs unremarkable. Dr. Bermeo was consulted and said pt can follow up with Dr. Cam outpatient case discussed with Dr. Lozano, pt can discharge home with outpatient follow up. - Lab Data Result diagrams: 02/18/21 14:59 02/18/21 14:59 Lab Results 02/18/21 02/18/21 02/18/21 Range/Units 14:59 14:59 14:59 WBC 8.3 (3.8-10.6) k/uL RBC 3.66 L (3.80-5.40) m/uL Hgb 12.1 (11.4-16.0) gm/dL Hct 36.7 (34.0-46.0) % MCV 100.3 H (80.0-100.0) fL MCH 33.1 (25.0-35.0) pg MCHC 33.0 (31.0-37.0) g/dL RDW 13.7 (11.5-15.5) % Plt Count 265 (150-450) k/uL MPV 7.1 Sodium 139 (137-145) mmol/L Potassium 3.9 (3.5-5.1) mmol/L Chloride 101 (98-107) mmol/L Carbon Dioxide 29 (22-30) mmol/L Anion Gap 9 mmol/L BUN 17 (7-17) mg/dL Creatinine 1.01 (0.52-1.04) mg/dL Est GFR (CKD-EPI)AfAm 72 (>60 ml/min/1.73 sqM) Est GFR (CKD-EPI)NonAf 62 (>60 ml/min/1.73 sqM) Glucose 97 (74-99) mg/dL Calcium 8.6 (8.4-10.2) mg/dL Total Bilirubin 0.5 (0.2-1.3) mg/dL AST 21 (14-36) U/L ALT 14 (4-34) U/L Alkaline Phosphatase 70 (38-126) U/L Total Protein 6.7 (6.3-8.2) g/dL Albumin 3.3 L (3.5-5.0) g/dL Urine Color Yellow Urine Appearance Clear (Clear) Urine pH 5.5 (5.0-8.0) Ur Specific [place] 1.016 (1.001-1.035) Urine Protein Trace H (Negative) Urine Glucose (UA) Negative (Negative) Urine Ketones Negative (Negative) Urine Blood Negative (Negative) Urine Nitrite Negative (Negative) Urine Bilirubin Negative (Negative) Urine Urobilinogen <2.0 (<2.0) mg/dL Ur Leukocyte Esterase Small H (Negative) Urine RBC 4 (0-5) /hpf Urine WBC 10 H (0-5) /hpf Ur Squamous Epith Cells 4 (0-4) /hpf Urine Mucus Rare H (None) /hpf Disposition Clinical Impression: Kidney stone on right side Disposition: HOME SELF-CARE Condition: Stable Instructions (If sedation given, give patient instructions): Kidney Stones (ED) Additional Instructions: Please return to the Emergency Department if symptoms worsen or any other concerns. follow up with Dr. Cam outpatient take tylenol and motrin as needed for pain. Is patient prescribed a controlled substance at d/c from ED?: No Referrals: Soren Shaw MD [Primary Care Provider] - 1-2 days Jay Cam MD [STAFF PHYSICIAN] - 1-2 days Time of Disposition: 15:52
[2021-02-18 16:20] VITALS: BP 118/81; PULSE 86; TEMP 98.2
== END 2021-02-18 16:20 | disposition home or self-care (01) ==
LOC: EC 13:41
DX: N20.0 Calculus of kidney (principal); K21.9 Gastro-esophageal reflux disease without esophagitis; M06.9 Rheumatoid arthritis, unspecified; F41.9 Anxiety disorder, unspecified; M81.0 Age-related osteoporosis without current pathological fracture; Z79.1 Long term (current) use of non-steroidal anti-inflammatories (NSAID); Z79.899 Other long term (current) drug therapy; Z87.891 Personal history of nicotine dependence; Z88.5 Allergy status to narcotic agent
CPT/HCPCS: 36415; 80053; 81001; 85025; 96360; 99284

== ENCOUNTER 2021-04-12 06:55 | Day surgery (SDC) | payer BC ==
[2021-04-10 08:48] VITALS: BMI 44.9
--- NOTE | 2021-04-11 13:33 | P.GSHP ---
History of Present Illness H&P Date: 04/11/21 55 yo female with a history of stones. SHe has had previous pcnl left. SHe had eswl right. A fragment has lodged in the distal ureter based on ct scan at [facility]. She comes for right ureteroscopy with laser lithotripsy - Constitutional Constitutional: Denies chills, Denies fever - EENT Eyes: denies blurred vision, denies pain Ears, nose, mouth and throat: Denies headache, Denies sore throat - Cardiovascular Cardiovascular: Denies chest pain, Denies shortness of breath - Respiratory Respiratory: Denies cough, Denies 7 - Gastrointestinal Gastrointestinal: Denies abdominal pain, Denies diarrhea, Denies nausea, Denies vomiting - Genitourinary (Female) Genitourinary: Denies dysuria, Denies hematuria - Genitourinary (Male) Genitourinary: Denies dysuria, Denies hematuria - Musculoskeletal Musculoskeletal: Denies myalgias - Integumentary Integumentary: Denies pruritus, Denies rash - Neurological Neurological: Denies numbness, Denies weakness - Psychiatric Psychiatric: Denies anxiety, Denies depression - Endocrine Endocrine: Denies fatigue, Denies weight change Past Medical History Past Medical History: GERD/Reflux, Rheumatoid Arthritis (RA), Sleep Apnea/CPAP/B IPAP, Thyroid Disorder Additional Past Medical History / Comment(s): Covid infection 10/28/20, DAI with Cpap, thyroid nodules, pulmonary nodules, osteoporosis, bilateral carpal tunnel syndrome, kidney stones, History of Any Multi-Drug Resistant Organisms: VRE Date of last positivie culture/infection: 12/07/20 MDRO Source:: VRE URINE Past Surgical History: Tonsillectomy, Uterine Ablation Additional Past Surgical History / Comment(s): D&C, cystoscopy, several lithotripsies, percutaneous nephrostolithotomy Past Anesthesia/Blood Transfusion Reactions: Motion Sickness, Postoperative Nausea & Vomiting (PONV) Additional Past Anesthesia/Blood Transfusion Reaction / Comment(s): doesn't remember getting sick w/anesthesia Smoking Status: Former smoker - Past Family History Mother Family Medical History: No Reported History Additional Family Medical History / Comment(s): . Medications and Allergies Home Medications Medication Instructions Recorded Confirmed Type Alendronate Sodium [Fosamax] 70 mg PO MO 11/28/20 04/07/21 History Celecoxib [CeleBREX] 200 mg PO DAILY 11/28/20 04/07/21 History DULoxetine HCL [Cymbalta] 60 mg PO HS 11/28/20 04/07/21 History Folic Acid 1 mg PO DAILY 11/28/20 04/07/21 History Pantoprazole [Protonix] 40 mg PO HS 11/28/20 04/07/21 History Vitamin B Complex 1 cap PO DAILY 11/28/20 04/07/21 History Adalimumab [Humira Pen] 40 mg SQ Q14D 12/12/20 04/07/21 History Cholecalciferol [Vitamin D3 (25 50 mcg PO DAILY 12/12/20 04/07/21 History Mcg = 1000 Iu)] metHOTREXate sodium [Methotrexate] 20 mg PO CASTELLANO 12/12/20 04/07/21 History Allergies Allergy/AdvReac Type Severity Reaction Status Date / Time codeine Allergy shaky and Verified 04/07/21 14:06 lightheaded hydromorphone [From Dilaudid] Allergy warm,flushed Verified 04/07/21 14:06 feeling, nausea, sweating, Surgical - Exam - General well developed, well nourished, obese - Eyes PERRL - ENT no hearing loss - Neck trachea midline - Respiratory normal expansion, normal respiratory effort - Cardiovascular Rhythm: regular - Abdomen Abdomen: soft, non tender - Neurologic normal coordination, normal sensation - Musculoskeletal normal posture - Psychiatric oriented to time, oriented to person, oriented to place, speech is normal, memory intact Results - Imaging CT scan - abdomen: report reviewed, image reviewed CT scan - pelvis: report reviewed, image reviewed Assessment and Plan Assessment: Impression: right ureteral stone. Plan Right ureteroscopy with laser lithotripsy
[~2021-04-12 06:55] MED LIST changes: -AMPICILLIN 1,000 MG in SODIUM CHLORIDE 0.9% 50 ML IVPB PRN; -DEXAMETHASONE SOD PHOSPHATE 4 MG/ML 1 ML VIAL IV ONE; -GENTAMICIN 140 MG in SODIUM CHLORIDE 0.9% 100 ML IVPB PRN; -LACTATED RINGERS 1,000 ML IV SCH; -LIDOCAINE 1% (10MG/ML) FOR IV START INTRADERMA PRN; -MIDAZOLAM 2 MG/2 ML VIAL IV PRN; -ONDANSETRON 4 MG/2 ML VIAL IVP ONE; +ceFAZolin 3 GM in SODIUM CHLORIDE 0.9% 100 ML IVPB PRN
[2021-04-12] MEDS ORDERED: ONDANSETRON 4 MG/2 ML VIAL IVP ONE (07:00)
[2021-04-12] MEDS ORDERED: LIDOCAINE 1% (10MG/ML) FOR IV START INTRADERMA PRN (07:00)
[2021-04-12] MEDS ORDERED: SCOPOLAMINE 1.5MG/72HR PATCH TRANSDERM ONE (07:00)
[2021-04-12] MEDS ORDERED: fentaNYL (PF) 50 MCG/ML 2 ML AMP IV PRN (07:00)
[2021-04-12] MEDS ORDERED: LACTATED RINGERS 1,000 ML IV SCH (07:00)
[2021-04-12] MEDS ORDERED: DEXAMETHASONE SOD PHOSPHATE 4 MG/ML 1 ML VIAL IV ONE (07:00)
[2021-04-12] MEDS ORDERED: LACTATED RINGERS 1,000 ML IV ONE (07:39)
--- NOTE | 2021-04-12 07:46 | XR ---
EXAMINATION TYPE: XR KUB DATE OF EXAM: 04/12/2021 7:10 AM CLINICAL HISTORY: Right-sided kidney stones. TECHNIQUE: 3 supine KUB images of the abdomen are obtained. COMPARISON: Outside CT November 28, 2020. Most recent x-ray January 25, 2021 FINDINGS: Exam noting suboptimal due to patient's large body habitus. Prior visualized dominant 8 mm calculus lower pole right kidney now not clearly identified. Larger staghorn type calculus upper pole left kidney on CT and prior plain film now not clearly seen. Multiple pelvic round densities suspect phleboliths redemonstrated. Possibility of bowel gas. Underlying levoconvex scoliosis centered at L3-L4 level. IMPRESSION: As above.
[2021-04-12] MEDS ORDERED: MIDAZOLAM 2 MG/2 ML VIAL ONE (08:24)
[2021-04-12] MEDS ORDERED: SUCCINYLCHOLINE CHLORIDE 100 MG/5 ML SYR IV ONE (08:24)
[2021-04-12] MEDS ORDERED: ROCURONIUM 10 MG/ML (5 ML VIAL) IV ONE (08:24)
[2021-04-12] MEDS ORDERED: LIDOCAINE 1% INJ 10MG/ML (20 ML MDV) ONE (08:24)
[2021-04-12] MEDS ORDERED: IOPAMIDOL-370 50ML BTL MISCELLANE ONE (08:24)
[2021-04-12] MEDS ORDERED: GLYCOPYRROLATE 0.2 MG/ML 2 ML VIAL ONE (08:24)
[2021-04-12] MEDS ORDERED: PROPOFOL 10 MG/ML 20 ML VIAL IV ONE (08:24)
[2021-04-12] MEDS ORDERED: NALOXONE 0.4 MG/ML 1 ML VIAL ONE (08:24)
[2021-04-12] MEDS ORDERED: NEOSTIGMINE 1 MG/ML 10 ML VIAL ONE (08:24)
[2021-04-12] MEDS ORDERED: fentaNYL (PF) 50 MCG/ML 2 ML AMP ONE (08:24)
--- NOTE | 2021-04-12 09:09 | P.OP ---
Date of Procedure: 04/12/21 Preoperative Diagnosis: Right ureteral stone Postoperative Diagnosis: Same, passed Procedure(s) Performed: Cystoscopy, right retrograde pyelogram, right ureteroscopy Anesthesia: PATRICK Surgeon: Jay Cam Estimated Blood Loss (ml): 0 Pathology: none sent Condition: stable Disposition: PACU Indications for Procedure: The patient is 55. She has a history of kidney stones. The stones are both calcium oxalate and struvite . A percutaneous nephrostolithotomy on the left and shockwave lithotripsy on the right. She lodged a fragment in the distal ureter. This fragment was identified and CAT scan as due to her size it was difficult to see on KUB. She is still having some pain. She comes for right ureteroscopy laser lithotripsy Description of Procedure: Patient is brought to the operating suite. She is given a general anesthetic. KUB is indeterminate whether there is a stone. There is a calcification in the true pelvis. Cystoscopy with a 21-Indian sheath and Foroblique lens identifies chronic cystitis. The right ureteral orifice is identified and intubated with an 8 cone-tip catheter. A retrograde pyelogram identifies some hydroureter just at the level of the iliac vessels. There is a questionable filling defect up. Due to her size this is somewhat difficult to determine that. I thus passed a semirigid ureteroscope up the ureter and identify the area of swelling but there is no stone identified. I passed the scope all the way up into the collecting system. I removed the rigid scope and passed the flexible ureteroscope up throughout the collecting system atraumatically and do not see any stone pull it ureteroscopy is done and there is no stone other than some edema where the stone probably was. The bladder strain the patient awake and returned recovery room good condition Passage of kidney stone right. The patient will be discharged home upon recovery and follow-up in the office postoperatively. Will discuss follow-up kidney stone management
--- NOTE | 2021-04-12 09:14 | FL ---
EXAMINATION TYPE: FL urography retrograde DATE OF EXAM: 04/12/2021 COMPARISON: NONE HISTORY: Right ureter stone TECHNIQUE: Fluoroscopy. FINDINGS: Fluoroscopic guidance was provided during right retrograde urogram procedure performed by Dr. Cam. A total of 22 seconds of fluoroscopic time was utilized during the procedure and 1 spot f luoroscopic image is acquired. Single image acquired shows excess right UVJ with retrograde contrast injection. IMPRESSION: As Above.
[2021-04-12 09:17] VITALS: TEMP 98
[2021-04-12 09:26] VITALS: RESP 16
[2021-04-12 10:16] VITALS: BP 133/68; PULSE 78
== END 2021-04-12 10:45 | disposition home or self-care (01) ==
LOC: OR 06:55
PROVIDERS: ATTEND Urology
DX: N20.1 Calculus of ureter (principal); K21.9 Gastro-esophageal reflux disease without esophagitis; M06.9 Rheumatoid arthritis, unspecified; Z87.891 Personal history of nicotine dependence; M81.0 Age-related osteoporosis without current pathological fracture; G47.33 Obstructive sleep apnea (adult) (pediatric); Z86.16 Personal history of COVID-19; Z88.5 Allergy status to narcotic agent; E04.1 Nontoxic single thyroid nodule; Z79.899 Other long term (current) drug therapy
CPT/HCPCS: 74420; 74018; 52005; C1758; J2250; J1100; J2310; J2710; J0690; J2405; J2001; J3010; J0330; J2704; Q9967

== ENCOUNTER 2024-07-15 08:57 | Day surgery (SDC) | payer BC ==
--- NOTE | 2024-07-14 17:10 | P.GSHP ---
History of Present Illness H&P Date: 07/14/24 59 yo female with a history of struvite kidney stones. SHe had a recent proteus uti and is found to have a 12 mm left renal stone in a calyceal diverticula. She comes for left ureteroscopy with laser lithotripsy and possible stent.. She is on culture specific antibiotics. THe risks . complications and alternatives have been discussed. - Constitutional Constitutional: Denies chills, Denies fever - EENT Eyes: denies blurred vision, denies pain Ears, nose, mouth and throat: Denies headache, Denies sore throat - Cardiovascular Cardiovascular: Denies chest pain, Denies shortness of breath - Respiratory Respiratory: Denies cough, Denies 7 - Gastrointestinal Gastrointestinal: Denies abdominal pain, Denies diarrhea, Denies nausea, Denies vomiting - Genitourinary (Female) Genitourinary: Denies dysuria, Denies hematuria - Genitourinary (Male) Genitourinary: Denies dysuria, Denies hematuria - Musculoskeletal Musculoskeletal: Denies myalgias - Integumentary Integumentary: Denies pruritus, Denies rash - Neurological Neurological: Denies numbness, Denies weakness - Psychiatric Psychiatric: Denies anxiety, Denies depression - Endocrine Endocrine: Denies fatigue, Denies weight change Past Medical History Past Medical History: GERD/Reflux, Rheumatoid Arthritis (RA), Sleep Apnea/CPAP/BIPAP, Thyroid Disorder Additional Past Medical History / Comment(s): uses Cpap, thyroid nodules, pulmonary nodules, osteoporosis, bilateral carpal tunnel syndrome, kidney stones, "borderline" diabetic History of Any Multi-Drug Resistant Organisms: VRE Date of last positivie culture/infection: 12/07/20 MDRO Source:: VRE URINE Past Surgical History: Tonsillectomy, Uterine Ablation Additional Past Surgical History / Comment(s): D&C, cystoscopy, several lithotripsies, percutaneous nephrostolithotomy, trigger finger surg Past Anesthesia/Blood Transfusion Reactions: Motion Sickness, Postoperative Nausea & Vomiting (PONV) Additional Past Anesthesia/Blood Transfusion Reaction / Comment(s): PONV once; no hx blood transfusion Smoking Status: Former smoker - Past Family History Mother Family Medical History: No Reported History Additional Family Medical History / Comment(s): Parkinson's; CREST syndrome Father Family Medical History: Diabetes Mellitus Additional Family Medical History / Comment(s): emphysema Medications and Allergies Home Medications Medication Instructions Recorded Confirmed Type Celecoxib [CeleBREX] 200 mg PO DAILY 11/28/20 07/14/24 History DULoxetine HCL [Cymbalta] 60 mg PO HS 11/28/20 07/14/24 History Pantoprazole [Protonix] 20 mg PO DAILY 11/28/20 07/14/24 History Cholecalciferol [Vitamin D3 (25 50 mcg PO DAILY 12/12/20 07/14/24 History Mcg = 1000 Iu)] Semaglutide [Ozempic] 2 mg SQ WE 07/14/24 07/14/24 History Upadacitinib [Rinvoq] 15 mg PO DAILY 07/14/24 07/14/24 History allopurinoL 100 mg PO HS 07/14/24 07/14/24 History Allergies Allergy/AdvReac Type Severity Reaction Status Date / Time codeine Allergy shaky and Verified 07/14/24 13:43 lightheaded hydromorphone [From Dilaudid] Allergy warm,flushed Verified 07/14/24 13:43 feeling, nausea, sweating, Results - Imaging CT scan - abdomen: report reviewed, image reviewed CT scan - pelvis: report reviewed, image reviewed Assessment and Plan Assessment: Impression: left renal stone, recurrent uti with proteus. Plan: cysto with left ureteroscopy , laser lithotripsy and possible stent.
[~2024-07-15 08:57] MED LIST changes: +HYDROmorphone 0.5 MG/0.5 ML SYRINGE IVP PRN; -ceFAZolin 3 GM in SODIUM CHLORIDE 0.9% 100 ML IVPB PRN
--- NOTE | 2024-07-15 09:30 | XR ---
EXAMINATION TYPE: XR KUB DATE OF EXAM: 07/15/2024 9:20 AM COMPARISON: None. CLINICAL INDICATION: Female, 59 years old with history of N20.0 LEFT RENAL STONE, TECHNIQUE: Single view of the abdomen. FINDINGS: Right renal calculi: None Visualized. Right ureteral calculi: None Visualized. Left renal calculi: 1 cm left renal calculus noted. Left ureteral calculi: None Visualized. Pelvic calcifications: Yes Bowel gas pattern is unremarkable. No free air. No mass effects. IMPRESSION: 1. 1 cm left renal calculus noted. [facility], , 07/15/2024 9:27 AM
[2024-07-15] MEDS: LACTATED RINGERS 1,000 ML IV SCH (10:22)
[2024-07-15 10:23] LABS: Glucose,Whole Blood 92 mg/dL (70-110)
[2024-07-15] MEDS: ONDANSETRON 4 MG/2 ML VIAL IVP ONE (10:27)
[2024-07-15] MEDS: DEXAMETHASONE SOD PHOSPHATE 4 MG/ML 1 ML VIAL IV ONE (10:27)
[2024-07-15] MEDS: GENTAMICIN 140 MG in SODIUM CHLORIDE 0.9% 100 ML IVPB PRN (10:30)
[2024-07-15] MEDS ORDERED: SUCCINYLCHOLINE CHLORIDE 200 MG/10 ML VIAL IV ONE (11:01)
[2024-07-15] MEDS ORDERED: ROCURONIUM 10 MG/ML (5 ML VIAL) IV ONE (11:01)
[2024-07-15] MEDS ORDERED: NEOSTIGMINE 1 MG/ML 10 ML VIAL ONE (11:01)
[2024-07-15] MEDS ORDERED: fentaNYL (PF) 50 MCG/ML 2 ML AMP ONE (11:01)
[2024-07-15] MEDS ORDERED: GLYCOPYRROLATE 0.2 MG/ML 2 ML VIAL ONE (11:01)
[2024-07-15] MEDS ORDERED: PROPOFOL 10 MG/ML 20 ML VIAL IV ONE (11:01)
[2024-07-15] MEDS ORDERED: LIDOCAINE 1% INJ 10MG/ML (20 ML MDV) ONE (11:01)
[2024-07-15] MEDS: AMPICILLIN 1,000 MG in SODIUM CHLORIDE 0.9% 50 ML IVPB PRN (11:01)
--- NOTE | 2024-07-15 12:11 | FL ---
Intraoperative/procedural fluoroscopic services were provided for cystoscopy lithotripsy for left-madan ed stone. Total fluoroscopy time is 8 seconds with a total of 2 submitted images to PACS. Total DAP 0 .[phone] Gycm2. Please see the operative note for further details. [facility], , 07/15/2024 12:09 PM
--- NOTE | 2024-07-15 12:14 | P.OP ---
Date of Procedure: 07/15/24 Preoperative Diagnosis: left renal calculus Postoperative Diagnosis: left UPJ calculus Procedure(s) Performed: cystoscopy, left ureteroscopy with laser lithotripsy, placement of 624 stent Anesthesia: PATRICK Surgeon: Jay Cam Estimated Blood Loss (ml): 25 Pathology: other (stone) Condition: stable Disposition: PACU Indications for Procedure: patient is 59. She has a left renal stone causing colic she comes for cystoscopy left ureteroscopy laser lithotripsy Description of Procedure: patient brought to the operating suite. Given a general anesthetic. Placed lithotomy position with a sterile prep and drape. Fluoroscopy shows the calculus in the region probably the UPJ. Cystoscopy shows a normal bladder. The ureteral orifices are normal. An 035 wires passed up into the kidney behind the stone. Over the wires passed [id number]-[id number] reentry sheath. The inner sheath is removed. I passed the flexible ureteroscope through the inner sheath up to the UPJ. The stone was impacted and is pushed back into the renal pelvis. The J on the left side is quite edematous a. I then pass the scope through the UPJ into the renal pelvis and break the stone into tiny pieces of the 200 laser probe. Some small pieces are sent to pathology. Due to the edema the UPJ I elect to leave a stent. An 035 wire is passed into the kidney. I do pull out ureteroscopy and the ureters normal. Over the wires and passed a 6 x 24 double- J catheter that coils in the renal pelvis and in the bladder. The bladder is drained the patient is awake and returned recovery in good condition. She tolerated the procedure well. I'll leave the stent approximately 2 weeks and then remove it
[2024-07-15 12:21] VITALS: TEMP 97
[2024-07-15 13:11] VITALS: RESP 16
[2024-07-15 13:28] VITALS: BP 156/74; PULSE 82
== END 2024-07-15 14:02 | disposition home or self-care (01) ==
LOC: OR 08:57
PROVIDERS: ATTEND Urology
DX: N20.2 Calculus of kidney with calculus of ureter (principal); E11.9 Type 2 diabetes mellitus without complications; K21.9 Gastro-esophageal reflux disease without esophagitis; M06.9 Rheumatoid arthritis, unspecified; M81.0 Age-related osteoporosis without current pathological fracture; G47.33 Obstructive sleep apnea (adult) (pediatric); F41.9 Anxiety disorder, unspecified; E66.9 Obesity, unspecified; Z79.1 Long term (current) use of non-steroidal anti-inflammatories (NSAID); Z87.891 Personal history of nicotine dependence; Z88.5 Allergy status to narcotic agent; Z90.89 Acquired absence of other organs; Z99.89 Dependence on other enabling machines and devices; Z88.8 Allergy status to other drugs, medicaments and biological substances
CPT/HCPCS: 52356; 82365; 74018; C2625; C1769; J0330; J1100; J2710; J2405; J2003; J3010; J1580; J0290; J2704; J1596